=== PATIENT | female | born 1980 | race Caucasian/White ===

== ENCOUNTER 2017-05-26 09:20 | Observation (INO) | payer OTHER ==
--- NOTE | 2017-05-26 09:31 | EDM.PDOC ---
ED HPI GENERAL MEDICAL PROBLEM - General Chief Complaint: Chest Pain Stated Complaint: chest pain Time Seen by Provider: 05/26/17 09:25 Source of Information: Reports: Patient, Family (), Old Records ([facility] EMR. 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 this morning. She has not taken any medications for her symptoms to this point and has not had similar type symptoms in the past. No history of previous cardiac workup. The patient denies any heart flutter, dizziness, orthostasis, orthopnea, diaphoresis, paresthesias, recent decreased exercise tolerance, or any other anginal-type symptoms. No recent history of abdominal pain, heartburn, nausea, diarrhea, melena, gross hematochezia, or any food intolerance, including fatty foods, etc.. The patient also denies any recent fever, cough, wheezing, dyspnea, etc.. Onset: Today, Sudden Onset Date: 05/26/17 Onset Time: 08:00 Duration: Constant Location: Reports: Neck, Chest, Back, Radiates to (As above) Quality: Reports: Pressure Severity: Mild Improves with: Reports: None Worsens with: Reports: None Context: Reports: Other (As above) Associated Symptoms: Reports: Chest Pain. Denies: Confusion, Cough, Diaphoresis , Fever/Chills, Headaches, Loss of Appetite, Malaise, Nausea/Vomiting, Shortness of Breath, Syncope, Weakness Treatments BIG 6 DEALER: Reports: Other (see below) (None) Chest Pain Pain Score (Numeric/FACES): 2 - Related Data Allergies Allergy/AdvReac Type Severity Reaction Status Date / Time Latex, Natural Rubber Allergy Swelling Verified 05/26/17 09:36 Home Meds: Home Meds Dextroamphetamine/Amphetamine [Adderall] 30 mg PO DAILY 05/26/17 [History] Ibuprofen 800 mg PO Q6H PRN 05/26/17 [History] Vits #93/Iron Fum/FA [ Formula Tablet] 1 tab PO DAILY 05/26/17 [History] Pseudoephedrine HCl [Sudafed] 1 tab PO Q4H PRN 05/26/17 [History] diphenhydrAMINE [Benadryl] 50 mg PO Q6H PRN 05/26/17 [History] Past Medical History HEENT History: Reports: Allergic Rhinitis, Otitis Media, Other (See Below). Denies: Cataract, Glaucoma, Hard of Hearing, Impaired Vision, Retinal Detachment Other HEENT History: Patient wears glasses and soft contacts; Recurrent otitis media as a child Cardiovascular History: Reports: None, Other (See Below). Denies: Afib, Aneurysm, Arrhythmia, Blood Clots/VTE/DVT, CAD, Heart Murmur, High Cholesterol, Hypertension, PA, PVD, Syncope Respiratory History: Denies: Asthma, COPD, Intubation, Previous, PE, Pneumothorax, Sleep Apnea Gastrointestinal History: Reports: Chronic Constipation. Denies: Celiac Disease , Cholelithiasis, Chronic Diarrhea, Colon Polyp, Fecal Incontinence, GERD, GI Bleed, Hepatitis, Hiatal Hernia, Irritable Bowel Syndrome, Jaundice, Pancreatitis, PUD Genitourinary History: Reports: None. 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 Denies: Dysfunctional Uterine Bleeding, Endometriosis, Fibroids, Spontaneous , Therapeutic : 3 Para: 4 LMP (Approximate): Other (See Below) Other OB/BYN History: LMP on 05/12/17 which was normal; preeclampsia, gestational diabetes, initial with subsequent twin requiring LTCS at 32 weeks gestation secondary to monoamniotic sac and distress with subsequent follow-up LTCS with last ; Musculoskeletal History: Reports: Arthritis, Back Pain, Chronic, Fracture, Neck Pain, Chronic, Osteoarthritis, RA, Other (See Below). Denies: Amputation, Gout , SLE Other Musculoskeletal History: Wrist fracture as a childside unknown Neurological History: Reports: Headaches, Chronic, Migraines, Neuropathy, Peripheral, Other (See Below). Denies: Brain Injury, Cerebral Aneurysms, Concussion, CVA, Head Trauma, MS, Neuropathy, Diabetic, Parkinson's, Seizure, TIA Other Neuro History: Peripheral neuropathy mostly in the right arm Psychiatric History: Reports: ADD, ADHD. Denies: Abuse, Victim of, Addiction, Anxiety, Depression, Psych Hospitalization(s), PTSD, Suicide Attempt, Suicidal Ideation Endocrine/Metabolic History: Reports: Diabetes, Gestational. Denies: Diabetes, Type I, Diabetes, Type II, Diabetes Mellitus, Type 3c, Hypothyroidism, IDDM Hematologic History: Reports: None, Anemia, Iron Deficiency. Denies: B12 Deficiency, Blood Transfusion(s) Immunologic History: Reports: None. Denies: AIDS, HIV, SLE Oncologic (Cancer) History: Reports: None. Denies: Basal Cell Carcinoma, Cervix , Hodgkin's Lymphoma, Leukemia, Lymphoma, Malignant Melanoma, Non-Hodgkin's Lymphoma, Squamous Cell Carcinoma Dermatologic History: Reports: None. Denies: Eczema, Psoriasis - Infectious Disease History Infectious Disease History: Reports: Chicken Pox. Denies: C-Difficile, Measles , Meningitis, Mononucleosis, MRSA, Mumps, Pertussis (Whooping Cough), Rheumatic Fever, Rubella, Scarlet Fever, Shingles, TB, VRE - Past Surgical History Head Surgeries/Procedures: Reports: None HEENT Surgical History: Reports: Adenoidectomy, Tonsillectomy, Other (See Below) . Denies: Eye Surgery, Laser Surgery, LASIK, Myringotomy w Tube(s), Naso-Sinus Surgery, Oral Surgery Other HEENT Surgeries/Procedures: Tonsillectomy and adenoidectomy at about age 8 ; teeth extraction; Cardiovascular Surgical History: Reports: None. Denies: Varicose, Vascular Surgery Respiratory Surgical History: Reports: None. Denies: Thoracentesis GI Surgical History: Reports: None. Denies: Appendectomy, Cholecystectomy, Colonoscopy, EGD, Hernia, Abdominal, Hernia, Inguinal, Hernia Repair/Other Female Surgical History: Reports: Breast Biopsy, Section, Tubal Ligation, Other (See Below). Denies: D&C, Salpingo-Oophorectomy Other Female Surgeries/Procedures: LTCS 2 as above; bilateral tubal ligation on 03/20/11; needle biopsy of left breast in 2013 for benign disease Endocrine Surgical History: Reports: None. Denies: Thyroid Biopsy Neurological Surgical History: Reports: None. Denies: C-Spine, Discectomy, Laminectomy, Lumbar Spine, Spinal Fusion, Vertebroplasty Musculoskeletal Surgical History: Reports: None. Denies: Arthroscopic Procedure , Carpal Tunnel, Ganglion Cyst, Joint Replacement, ORIF, Shoulder Surgery Oncologic Surgical History: Reports: Biopsy of Breast, Other (See Below) Other Oncologic Surgeries/Procedures: As above for benign disease Dermatological Surgical History: Reports: Skin Biopsy, Other (See Below) Other Dermatological Surgeries/Procedures: Skin biopsy of abdomen at about age 20 for benign disease - Past Imaging History Past Imaging History: Reports: None Social & Family History - Family History Family Medical History: Unobtainable HEENT: Reports: Cataract, Glaucoma, Macular Degeneration, Other (See Below). Denies: Retinal Detachment Other HEENT Family History: Maternal grandfather with history of cataracts, glaucoma, macular degeneration, and deattached retina; mother with strabismus Cardiac: Reports: Blood Clots/VTE/DVT, Bypass, High Cholesterol, Hypertension, PA, Other (See Below). Denies: Afib, Aneurysm, Arrhythmia, CAD, Syncope Other Cardiac Family History: Paternal grandfather CABG 4 in his 60s to 70s with history of several MIs initial PA in his 50s; hypertension in parents, paternal aunts 5, paternal uncles 3, maternal aunts 2; paternal grandmother with history of DVT and secondary fatal PE at age 68; hyperlipidemia in parents Respiratory: Reports: Asthma, PE, Pneumothorax, Other (See Below). Denies: COPD , Sleep Apnea Other Respiratory Family Hisory: Sister with asthma; twins with history of spontaneous pneumothoraces secondary to delivery; fatal PE and paternal grandmother as above GI: Reports: GI bleed, PUD, Other (See Below). Denies: Celiac Disease, Cholelithiasis, Colon Polyps, GERD, Inflammatory Bowel Disease, Irritable Bowel Syndrome Other GI Family History: History of peptic ulcer disease and gastric ulcer in paternal grandmother : Reports: Renal Calculus, Other (See Below). Denies: Dialysis, Renal Disease /Insufficiency, UTI, Recurrent Other Family History: Sister with urolithiasis OBGYN: Reports: Endometriosis, Recurrent Spontaneous , Other (See Below) . Denies: Dysfunctional uterine bleeding, Fibroids Other OBGYN Family History: Maternal aunts 2 with endometriosis and multiple secondary miscarriages Musculoskeletal: Reports: RA, Other (See Below). Denies: Gout, SLE Other Musculoskeletal Family History: Mother and maternal grandmother with rheumatoid arthritis Neurological: Reports: Alzheimers Disease, CVA, Dementia, Migraines, TIA, Other (See Below). Denies: Cerebral Aneurysms, MS, Parkinson's, Seizure Other Neurological Family History: CVA in paternal grandfather in his 50s; mother with TIA in her 40s; maternal grandfather with organic brain syndrome; Mother with migraines Psychiatric: Reports: Anxiety, Depression, Psych Hospitalization(s), Other (See Below). Denies: Abuse, Victim of, ADD, Psychosis, PTSD, Suicide Attempt Other Psychiatric Family History: Father with anxiety depression disorder; paternal grandmother with anxiety depression disorder with hospitalizations required usually after pregnancies Endocrine/Metabolic: Reports: Diabetes, type II, Hypothyroidism, Other (See Below). Denies: Diabetes, Type I, IDDM Other Endocrine/Metabolic Family History: AODM in father; hypothyroidism in paternal aunts 2 Hematologic: Reports: None. Denies: Anemia, B12 Deficiency, SLE, Transfusion Reaction Immunologic: Reports: None. Denies: AIDS, HIV, SLE Dermatologic: Reports: Eczema, Other (See Below). Denies: Psoriasis Other Dermatologic Family History: Sister with eczema Oncologic: Reports: Lung, Lymphoma, Metastatic, Prostate, Other (See Below). Denies: Breast, Colon, Hodgkin's Lymphoma, Leukemia, Non-Hodgkin's Lymphoma, Ovarian, Skin, Uterine Other Oncologic Family History: Paternal grandfather with fatal unknown type of cancer in his 80s with known history of previous prostate cancer, colon, pancreas, etc. - Tobacco Use Smoking Status *Q: Current Every Day Smoker Tobacco Use Within Last Twelve Months: Cigarettes Years of Tobacco use: 17 Packs/Tins Daily: 0.5 (Smoking at age 20 with maximum use of one pack per day) Used Tobacco, but Quit: Yes Smoking Cessation Information Provided To Patient: Yes (At discharge) Second Hand Smoke Exposure: Yes Source of Second Hand Smoke Exposure: smokes Second Hand Smoke Education Provided: Yes - Caffeine Use Caffeine Use: Reports: Energy Drinks (3 Cans per day). Denies: Coffee, Soda, Tea - Alcohol Use Alcohol Use History: Yes Days Per Week of Alcohol Use: 0 (No previous DWIs, problems with alcohol abuse, etc.) Number of Drinks Per Day: 3 (Usually beer or wine once per month) Total Drinks Per Week: 0 Alcohol Use in Last Twelve Months: Yes Alcohol Use Frequency: Socially - Recreational Drug Use Recreational Drug Use: Yes Drug Use in Last 12 Months: No Recreational Drug Type: Reports: Marijuana/Hashish (Experimented with marijuana between 20 and 22). 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 Denies: Fever, Chills, Malaise, Weakness , Fatigue, Night Sweats, Diaphoresis, Decreased Appetite, Weight Gain HEENT: Reports: Glasses. Denies: Dental Pain, Ear Discharge, Ear Pain, Eye Pain , Hearing Loss, Rhinitis, Sinus Problem, Throat Pain, Vertigo, Vision Change Respiratory: Reports: No Symptoms. Denies: Shortness of Breath, Wheezing, Pleuritic Chest Pain, Cough, Sputum, Hemoptysis Cardiovascular: Reports: Chest Pain. Denies: Blood Pressure Problem (Although elevated in the emergency room), Claudication, Dyspnea on Exertion, Edema, Lightheadedness, Orthopnea, Palpitations, Syncope Endocrine: Reports: No Symptoms. Denies: Fatigue GI/Abdominal: Reports: No Symptoms. Denies: Abdominal Pain, Anorexia, Black Stool, Bloody Stool, Constipation, Diarrhea, Decreased Appetite, Difficulty Swallowing, Distension, Flatus, Hematemesis, Hematochezia, Melena, Mucous in Stool, Nausea, Vomiting : Reports: No Symptoms. Denies: Discharge, Dysuria, Flank Pain, Frequency, Hematuria, Incontinence, Irregular Menses, Urgency, Urinary Retention Musculoskeletal: Reports: Neck Pain, Back Pain. Denies: Shoulder Pain, Arm Pain , Hand Pain, Leg Pain, Foot Pain, Joint Pain, Joint Swelling, Muscle Pain, Muscle Stiffness Skin: Reports: No Symptoms. Denies: Pallor, Diaphoresis, Bruising, Pruritis, Rash, Wound Neurological: Reports: No Symptoms. Denies: Confusion, Dizziness, Headache, Numbness, Paresthesia, Seizure, Syncope, Tingling, Weakness Psychiatric: Reports: No Symptoms. Denies: Agitation, Anxiety, Confusion, Depression, Hallucinations, Suicidal Ideation Hematologic/Lymphatic: Reports: No Symptoms Immunologic: Reports: No Symptoms ED EXAM, GENERAL - Physical Exam Exam: See Below Exam Limited By: No Limitations General Appearance: Alert, WD/WN, No Apparent Distress, Anxious (Mild to moderate) Eye Exam: Bilateral Eye: EOMI, Normal Inspection (Patient wearing glasses, no nystagmus), PERRL Ears: Normal External Exam, Normal Canal, Hearing Grossly Normal, Normal TMs Nose: Normal Inspection, Normal Mucosa, No Blood Throat/Mouth: Normal Inspection, Normal Lips, Normal Gums, Normal Oropharynx, Normal Voice, No Airway Compromise, Other (Right lower missing tooth with additional posterior chipped tooth and caries in the right lower second premolar ). No: Normal Teeth, Dysphagia, Perioral Cyanosis Head: Atraumatic, Normocephalic. No: Facial Swelling, Facial Tenderness, Sinus Tenderness Neck: Normal Inspection, Supple, Non-Tender, Full Range of Motion. No: Carotid Bruit, Lymphadenopathy (L), Lymphadenopathy (R), Thyromegaly Respiratory/Chest: No Respiratory Distress, Lungs Clear, Normal Breath Sounds, No Accessory Muscle Use, Chest Non-Tender. No: Pleural Rub, Retractions Cardiovascular: Normal Peripheral Pulses, No Edema, No Gallop, No JVD, No Murmur , No Rub, Tachycardia (Mild, regular rhythm). No: Gallop/S3, Gallop/S4, Extra Beats, Friction Rub Peripheral Pulses: 2+: Radial (R), Femoral (L), Dorsalis Pedis (L), Dorsalis Pedis (R) GI/Abdominal: Normal Bowel Sounds, Soft, Non-Tender, No Organomegaly, No Distention, No Abnormal Bruit, No Mass, Pelvis Stable. No: Guarding (Female) Exam: Deferred Rectal (Female) Exam: Deferred Back Exam: Normal Inspection, Full Range of Motion. No: CVA Tenderness (L), CVA Tenderness (R), Muscle Spasm Extremities: Normal Inspection, Normal Range of Motion, Non-Tender, No Pedal Edema, Normal Capillary Refill. No: Surya's Sign Neurological: Alert, Oriented, CN II-XII Intact, Normal Cognition, Normal Gait, Normal Reflexes (Negative Babinski's), No Motor/Sensory Deficits Psychiatric: Anxious (Mild to moderate), Depressed Mood Skin Exam: Warm, Dry, Intact, Normal Color, No Rash, Tattoo(s) (Multiple). No: Diaphoretic, Ecchymosis, Petechiae, Stud(s), Wound/Incision Lymphatic: No Adenopathy EKG INTERPRETATION EKG Date: 05/26/17 Time: 09:37 Rhythm: NSR Rate (Beats/Min): 93 [place]: Normal (Neutral) P-Wave: Present (Mild diffuse biphasic P waves with extreme poor R-wave progression in the anterior leads) QRS: Normal (QRS interval 0.07 seconds) ST-T: Other (T-wave inversion in leads V1 and V2) QT: Normal MT/PQ Interval: 0.11 seconds representing a short MT interval with no delta waves noted Comparison: NA - No Prior EKG EKG Interpretation Comments: 1. Possible anterior wall cardiac ischemia 2. Short MT interval Course - Vital Signs Last Recorded V/S: Last Vital Signs Temp 36.7 C 05/26/17 10:07 Pulse 86 05/26/17 10:28 Resp 16 05/26/17 10:28 BP 140/84 05/26/17 10:28 Pulse Ox 100 05/26/17 10:28 Vital Signs - 24 hr 05/26/17 05/26/17 05/26/17 09:25 09:30 09:32 Temperature [ 36.7 C 36.7 C Oral] Pulse, Peripheral Pulse, 111 H 105 H Peripheral [ Right] Respiratory 20 18 Rate Blood Pressure Blood Pressure 165/87 H 165/84 H [Left Upper Arm ] O2 Sat by Pulse 100 99 Oximetry O2 Sat by Pulse 100 100 Oximetry [ Nasal Cannula] 05/26/17 05/26/17 05/26/17 09:37 09:52 10:02 Temperature [ Oral] Pulse, 90 Peripheral Pulse, 103 H 100 Peripheral [ Right] Respiratory 18 18 Rate Blood Pressure 169/95 H Blood Pressure 162/83 H 169/95 H [Left Upper Arm ] O2 Sat by Pulse 100 100 Oximetry O2 Sat by Pulse Oximetry [ Nasal Cannula] 05/26/17 05/26/17 10:07 10:28 Temperature [ 36.7 C Oral] Pulse, Peripheral Pulse, 98 86 Peripheral [ Right] Respiratory 16 16 Rate Blood Pressure Blood Pressure 143/95 H 140/84 [Left Upper Arm ] O2 Sat by Pulse 100 100 Oximetry O2 Sat by Pulse Oximetry [ Nasal Cannula] - Orders/Labs/Meds Orders: Active Orders 24 hr Category Date Time Status Cardiac Monitoring [RC] . DIRECTED Care 05/26/17 09:32 Active EKG Documentation Completion [RC] ASDIRECTED Care 05/26/17 09:32 Active Oxygen Therapy, ED [RC] CONTINUOUS Care 05/26/17 09:32 Active Peripheral IV Care [RC] . DIRECTED Care 05/26/17 09:32 Active Pulse Oximetry [RC] CONTINUOUS Care 05/26/17 09:32 Active Up With Assistance [RC] PFP Care 05/26/17 09:32 Active Vital Signs [RC] PFP Care 05/26/17 09:32 Active Nothing per Oral Now Diet [DIET] Diet 05/26/17 Breakfast Active Chest 1V Frontal [CR] Stat Exams 05/26/17 09:32 Ordered Sodium Chloride 0.9% [Saline Flush] Med 05/26/17 09:32 Active 10 ml FLUSH ASDIRECTED PRN Obtain Past Medical Record [OM.PC] Urgent Oth 05/26/17 09:32 Active Peripheral IV Insertion Adult [OM.PC] Stat Oth 05/26/17 09:32 Ordered Resuscitation Status Stat Resus Stat 05/26/17 09:32 Ordered Medication Orders Sodium Chloride (Saline Flush) 10 ml FLUSH ASDIRECTED PRN PRN Reason: Keep Vein Open Last Admin: 05/26/17 10:05 Dose: 10 ml Labs: Laboratory Tests 05/26/17 05/26/17 05/26/17 Range/Units 09:46 09:46 09:46 WBC 7.1 (4.0-10.2) K/uL RBC 4.09 (3.77-5.09) M/uL Hgb 13.6 (11.7-15.5) g/dL Hct 38.9 (34.0-46.0) % MCV 95.1 (84.0-98.0) fL MCH 33.3 (28.2-33.3) pg MCHC 35.0 (31.7-36.0) g/dL RDW 11.9 (11.2-14.1) % Plt Count 195 (150-350) K/uL Neut % (Auto) 59.8 (45.0-80.0) % Lymph % (Auto) 24.3 (10.0-50.0) % [place] % (Auto) 10.1 (2.0-14.0) % Eos % (Auto) 5.4 H (0.0-5.0) % Baso % (Auto) 0.4 (0.0-2.0) % Neut # (Auto) 4.22 (1.40-7.00) K/uL Lymph # (Auto) 1.71 (0.50-3.50) K/uL [place] # (Auto) 0.71 (0.00-1.00) K/uL Eos # (Auto) 0.38 (0.00-0.50) K/uL Baso # (Auto) 0.03 (0.00-0.20) K/uL PT 10.5 (9.8-11.7) SEC INR 1.0 APTT 30.8 H (22.1-29.8) SEC D-Dimer, Quantitative < 100 (0-400) ng/mL Sodium (136-145) mmol/L Potassium (3.5-5.1) mmol/L Chloride (98-107) mmol/L Carbon Dioxide (21.0-32.0) mmol/L BUN (7-18) mg/dL Creatinine (0.51-1.17) mg/dL Est Cr Clr Drug Dosing mL/min Estimated GFR (MDRD) mL/min Glucose (74-106) mg/dL Lactic Acid (0.4-2.0) mmol/L Uric Acid (2.6-7.2) mg/dL Calcium (8.5-10.1) mg/dL Magnesium (1.8-2.4) mg/dL Total Bilirubin (0.2-1.0) mg/dL AST (15-37) U/L ALT (12-78) U/L Alkaline Phosphatase (46-116) IU/L Creatine Kinase (26-308) U/L Creatine Kinase Index (0.0-2.5) % CK-MB (CK-2) (0.00-3.60) ng/mL Troponin I (0.000-0.056) ng/mL NT-Pro-B Natriuret Pep (0-125) pg/mL Total Protein (6.4-8.2) g/dL Albumin (3.4-5.0) g/dL TSH, Ultra Sensitive (0.358-3.740) mIU/mL HCG, Qual (NEGATIVE) 05/26/17 05/26/17 05/26/17 Range/Units 09:46 09:46 09:46 WBC (4.0-10.2) K/uL RBC (3.77-5.09) M/uL Hgb (11.7-15.5) g/dL Hct (34.0-46.0) % MCV (84.0-98.0) fL MCH (28.2-33.3) pg MCHC (31.7-36.0) g/dL RDW (11.2-14.1) % Plt Count (150-350) K/uL Neut % (Auto) (45.0-80.0) % Lymph % (Auto) (10.0-50.0) % [place] % (Auto) (2.0-14.0) % Eos % (Auto) (0.0-5.0) % Baso % (Auto) (0.0-2.0) % Neut # (Auto) (1.40-7.00) K/uL Lymph # (Auto) (0.50-3.50) K/uL [place] # (Auto) (0.00-1.00) K/uL Eos # (Auto) (0.00-0.50) K/uL Baso # (Auto) (0.00-0.20) K/uL PT (9.8-11.7) SEC INR APTT (22.1-29.8) SEC D-Dimer, Quantitative (0-400) ng/mL Sodium 139 (136-145) mmol/L Potassium 4.1 (3.5-5.1) mmol/L Chloride 103 (98-107) mmol/L Carbon Dioxide 26.4 (21.0-32.0) mmol/L BUN 14 (7-18) mg/dL Creatinine 0.67 (0.51-1.17) mg/dL Est Cr Clr Drug Dosing 84.18 mL/min Estimated GFR (MDRD) > 60 mL/min Glucose 111 H (74-106) mg/dL Lactic Acid 0.9 (0.4-2.0) mmol/L Uric Acid 4.1 (2.6-7.2) mg/dL Calcium 9.0 (8.5-10.1) mg/dL Magnesium 2.0 (1.8-2.4) mg/dL Total Bilirubin 0.2 (0.2-1.0) mg/dL AST 18 (15-37) U/L ALT 34 (12-78) U/L Alkaline Phosphatase 76 (46-116) IU/L Creatine Kinase 143 (26-308) U/L Creatine Kinase Index 1.5 (0.0-2.5) % CK-MB (CK-2) 2.10 (0.00-3.60) ng/mL Troponin I 0.003 (0.000-0.056) ng/mL NT-Pro-B Natriuret Pep 20 (0-125) pg/mL Total Protein 7.0 (6.4-8.2) g/dL Albumin 4.0 (3.4-5.0) g/dL TSH, Ultra Sensitive 2.137 (0.358-3.740) mIU/mL HCG, Qual Negative (NEGATIVE) Meds: Medications Generic Name Dose Route Start Last Admin Trade Name Frelizzie PRN Reason Stop Dose Admin Sodium Chloride 10 ml 05/26/17 09:32 05/26/17 10:05 Saline Flush FLUSH 10 ml ASDIRECTED PRN Administration Keep Vein Open Discontinued Medications Generic Name Dose Route Start Last Admin Trade Name Frelizzie PRN Reason Stop Dose Admin Aspirin 324 mg 05/26/17 09:32 05/26/17 09:52 Aspirin CHEW 05/26/17 09:33 324 mg ONETIME ONE Administration Famotidine 40 mg 05/26/17 09:32 05/26/17 10:02 Pepcid IVPUSH 05/26/17 09:33 40 mg ONETIME ONE Administration Metoprolol Tartrate 2.5 mg 05/26/17 09:32 05/26/17 10:02 Lopressor IVPUSH 05/26/17 09:33 2.5 mg ONETIME ONE Administration Ticagrelor 180 mg 05/26/17 09:32 05/26/17 09:53 Brilinta PO 05/26/17 09:33 180 mg ONETIME ONE Administration - Radiology Interpretation Free Text/Narrative:: 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 Departure - Departure Time of Disposition: 10:45 Disposition: Refer to Observation Condition: Good Clinical Impression: Chest pain, Hypertension, Caries, ADHD, Shortened MT interval, Tobacco abuse counseling - Problem List & Annotations (1) Chest pain SNOMED Code(s): 16644066 Code(s): R07.9 - CHEST PAIN, UNSPECIFIED Status: Acute Priority: High Current Visit: Yes Onset Date: 05/26/17 Annotation/Comment:: Chest pain protocol initiated immediately upon patient's arrival to the emergency room. Chest pain resolved at time of admission. Initiate standard rule out PA orders with cardiology consultation depending on her clinical course. Probable Cardiolite stress test on an outpatient basis. Qualifiers: Chest pain type: chest pain due to myocardial ischemia Ischemic chest pain type: stable angina pectoris Qualified Code(s): I20.8 - Other forms of angina pectoris (2) Hypertension SNOMED Code(s): 37719067 Code(s): I10 - ESSENTIAL (PRIMARY) HYPERTENSION Status: Chronic Priority : Medium Current Visit: Yes Annotation/Comment:: Note previous history of preeclampsia and strong family history of hypertension. IV Lopressor initiated in the emergency room. Initiate low-dose Toprol-XL on admission. Note significant caffeine intake with the patient advised to stop her energy drinks AUSTYN. Continue to observe closely by her regular provider Qualifiers: Hypertension type: essential hypertension Qualified Code(s): I10 - Essential (primary) hypertension (3) Shortened MT interval SNOMED Code(s): 93557283 Code(s): R94.31 - ABNORMAL ELECTROCARDIOGRAM [ECG] [EKG] Status: Acute Priority: Medium Current Visit: Yes Onset Date: 05/26/17 Annotation/ Comment:: Observe for now. No delta waves noted. Madhav therapy as above with caution. (4) ADHD SNOMED Code(s): 012029961 Code(s): F90.9 - ATTENTION-DEFICIT HYPERACTIVITY DISORDER, UNSPECIFIED TYPE Status: Chronic Priority: Medium Current Visit: Yes Annotation/Comment: : Stable by patient history no evidence of mild to moderate mixed anxietyl and depression by clinical exam. Continue to observe closely by her regular provider Qualifiers: Attention deficit-hyperactivity disorder type: combined inattentive- hyperactive Qualified Code(s): F90.2 - Attention-deficit hyperactivity disorder, combined type (5) Caries SNOMED Code(s): 60779525 Code(s): K02.9 - DENTAL CARIES, UNSPECIFIED Status: Chronic Priority: Medium Current Visit: Yes Annotation/Comment:: Follow-up with dentist AUSTYN at discharge (6) Tobacco abuse counseling SNOMED Code(s): 999795855, 447840924 Code(s): Z71.6 - TOBACCO ABUSE COUNSELING Status: Chronic Priority: Medium Current Visit: Yes Annotation/Comment:: Tobacco cessation counseling initiated in the emergency room both with the patient and her with tobacco cessation information to be provided at discharge - Problem List Review Problem List Initiated/Reviewed/Updated: Yes - My Orders Last 24 Hours: My Active Orders 05/26/17 09:32 Cardiac Monitoring [RC] . DIRECTED EKG Documentation Completion [RC] ASDIRECTED Oxygen Therapy, ED [RC] CONTINUOUS Peripheral IV Care [RC] . DIRECTED Pulse Oximetry [RC] CONTINUOUS Up With Assistance [RC] PFP Vital Signs [RC] PFP Chest 1V Frontal [CR] Stat Sodium Chloride 0.9% [Saline Flush] 10 ml FLUSH ASDIRECTED PRN Obtain Past Medical Record [OM.PC] Urgent Peripheral IV Insertion Adult [OM.PC] Stat Resuscitation Status Stat 05/26/17 Breakfast Nothing per Oral Now Diet [DIET] - Assessment/Plan Admission H&P: Please use this note as an admission H&P Last 24 Hours: My Active Orders 05/26/17 09:32 Cardiac Monitoring [RC] . DIRECTED EKG Documentation Completion [RC] ASDIRECTED Oxygen Therapy, ED [RC] CONTINUOUS Peripheral IV Care [RC] . DIRECTED Pulse Oximetry [RC] CONTINUOUS Up With Assistance [RC] PFP Vital Signs [RC] PFP Chest 1V Frontal [CR] Stat Sodium Chloride 0.9% [Saline Flush] 10 ml FLUSH ASDIRECTED PRN Obtain Past Medical Record [OM.PC] Urgent Peripheral IV Insertion Adult [OM.PC] Stat Resuscitation Status Stat 05/26/17 Breakfast Nothing per Oral Now Diet [DIET] Assessment:: As above Plan: As above. Extensive precautions were given to the patient and her , who are in agreement with the treatment plan. The patient's condition is stable enough for observation status and general supervision.
[2017-05-26] MEDS ORDERED: Metoprolol Tartrate 5 MG/5 ML SDV IVPUSH ONE (09:32)
[2017-05-26] MEDS ORDERED: Aspirin 81 MG Tab.Chew CHEW ONE (09:32)
[2017-05-26] MEDS ORDERED: Famotidine 20 MG/2 ML SDV IVPUSH ONE (09:32)
[2017-05-26] MEDS ORDERED: Ticagrelor 90 MG Tab PO ONE (09:32)
[2017-05-26] MEDS: Sodium Chloride 0.9% 10 ML Syringe FLUSH PRN (10:05)
[2017-05-26 10:27] LABS: CHLORIDE,CL 103 mmol/L (98-107); SODIUM,NA 139 mmol/L (136-145)
[2017-05-26] MEDS ORDERED: Temazepam 15 MG Cap PO PRN (10:57)
[2017-05-26] MEDS ORDERED: Sodium Chloride 0.9% 10 ML Syringe FLUSH PRN (10:57)
[2017-05-26] MEDS ORDERED: Metoprolol Succinate 25 MG Tab.ER PO SCH (10:57)
[2017-05-26] MEDS ORDERED: Metoprolol Succinate 25 MG Tab.ER PO ONE (11:01)
[2017-05-26] MEDS ORDERED: Acetaminophen 325 MG Tab PO PRN (12:00)
[2017-05-27] MEDS ORDERED: Prenatal Multivitamin with Calcium/Folic Acid/Iron Tab PO SCH (08:00)
[2017-05-27] MEDS ORDERED: Non-Formulary Medication 1 Each (Dextroamphetamine/Amphetamine [Adderall] 30 MG) PO SCH (08:00)
[2017-05-27] MEDS ORDERED: Metoprolol Succinate 25 MG Tab.ER PO SCH (08:00)
[2017-05-27] MEDS: Sodium Chloride 0.9% 10 ML Syringe FLUSH PRN (08:40)
[2017-05-27 08:44] LABS: CHLORIDE,CL 106 mmol/L (98-107); SODIUM,NA 141 mmol/L (136-145)
--- NOTE | 2017-05-27 09:41 | PCM.DCSUM1 ---
Discharge Summary - Hospital Course HPI Initial Comments: See admission H&P/emergency room now Brief History: See admission H&P/emergency room now - Discharge Data Discharge Date: 05/27/17 Discharge Disposition: Home, Self-Care 01 Condition: Good - Discharge Diagnosis/Problem(s) (1) Chest pain SNOMED Code(s): 73764761 ICD Code: R07.9 - CHEST PAIN, UNSPECIFIED Status: Acute Priority: High Current Visit: Yes Onset Date: 05/26/17 Problem Details: Nonspecific chest pain yesterday afternoon with no other anginal type symptoms and complete resolution at time of discharge. Negative workup for acute DC as above. Activity restrictions discussed and work excuse provided. Patient did receive Tylenol yesterday for her chest discomfort yesterday. Chest pain protocol initiated immediately upon patient's arrival to the emergency room. Chest pain resolved at time of admission. Further cardiology consultation depending on her clinical course and results of Cardiolite stress test, which will be conducted by me in this facility on 05/29. Otherwise close follow-up by her regular provider, Mike Arreguin PA-C, at the [facility] in [place], as per discharge instructions. Her lipid panel this morning was okay, however heart healthy diet advisable. Glycosylated hemoglobin normal this morning Qualifiers: Chest pain type: chest pain due to myocardial ischemia Ischemic chest pain type: stable angina pectoris Qualified Code(s): I20.8 - Other forms of angina pectoris (2) Hypertension SNOMED Code(s): 41464294 ICD Code: I10 - ESSENTIAL (PRIMARY) HYPERTENSION Status: Chronic Priority : Medium Current Visit: Yes Problem Details: She will be discharged on Toprol-XL with borderline tachycardia last evening but heart rate in the 70s at this time with the above medical therapy. Note previous history of preeclampsia and strong family history of hypertension. IV Lopressor was given in the emergency room. Low-dose Toprol-XL was also given on admission. Note significant caffeine intake with the patient advised to stop her energy drinks AUSTYN. Continue to observe closely by her regular provider Qualifiers: Hypertension type: essential hypertension Qualified Code(s): I10 - Essential (primary) hypertension (3) Shortened OH interval SNOMED Code(s): 49796834 ICD Code: R94.31 - ABNORMAL ELECTROCARDIOGRAM [ECG] [EKG] Status: Acute Priority: Medium Current Visit: Yes Onset Date: 05/26/17 Problem Details: Observe for now. No delta waves noted. Madhav therapy as above with caution as above. (4) ADHD SNOMED Code(s): 327011822 ICD Code: F90.9 - ATTENTION-DEFICIT HYPERACTIVITY DISORDER, UNSPECIFIED TYPE Status: Chronic Priority: Medium Current Visit: Yes Problem Details: Stable by patient history no evidence of mild to moderate mixed anxiety and depression by clinical exam. Continue to observe closely by her regular provider Qualifiers: Attention deficit-hyperactivity disorder type: combined inattentive- hyperactive Qualified Code(s): F90.2 - Attention-deficit hyperactivity disorder, combined type (5) Caries SNOMED Code(s): 51630713 ICD Code: K02.9 - DENTAL CARIES, UNSPECIFIED Status: Chronic Priority: Medium Current Visit: Yes Problem Details: Follow-up with dentist AUSTYN at discharge (6) Tobacco abuse counseling SNOMED Code(s): 033053774, 327438793 ICD Code: Z71.6 - TOBACCO ABUSE COUNSELING Status: Chronic Priority: Medium Current Visit: Yes Problem Details: Tobacco cessation counseling initiated in the emergency room both with the patient and her with tobacco cessation information to be provided at discharge - Patient Summary/Data Operative Procedure(s) Performed: None Complications: None Consults: None Labs Pending at D/C: None Recommended Follow-up Testing/Procedures: As per discharge instructions Planned Operative Procedure(s) after DC: As per discharge instructions Hospital Course: The patient was admitted to observation status on telemetry with negative standard rule out orders as above. Chest pain protocol was initiated in the emergency room. Otherwise no complications during this hospitalization. Close follow-up as per discharge instructions. - Patient Instructions Diet: Heart Healthy Diet Activity: No Strenuous Activities (50% maximum exercise restriction with fall and injury precautions as discussed) Driving: May Drive Today Showering/Bathing: May Shower Notify Provider of: Increased Pain, Nausea and/or Vomiting Other/Special Instructions: 1. Cardiolite stress test in this facility with me on 05/29. This facility will call you with a specific time in instructions prior to that evaluation. 2. Followup with your regular provider in 10 days as directed for reevaluation and discussion of the above heart evaluation results. 3. Stop all tobacco use AUSTYN as directed/per provided information and consider contacting [employer], etc.. 4. Follow up with your dentist AUSTYN as discussed. 5. Discontinue all energy drink use immediately and avoid caffeine as discussed. 6. Work excuse- See Form. 7. Tylenol 650 mg by mouth every 4 hours and/or OTC ibuprofen 2-3 tabs by mouth every 6 hours with food as directed./needed. - Discharge Plan Prescriptions/Med Rec: Metoprolol Succinate [Toprol XL] 25 mg PO DAILY #30 tab.er Home Medications: Home Meds Dextroamphetamine/Amphetamine [Adderall] 30 mg PO DAILY 05/26/17 [History] Vits #93/Iron Fum/FA [ Formula Tablet] 1 tab PO DAILY 05/26/17 [History] Pseudoephedrine HCl [Sudafed] 1 tab PO Q4H PRN 05/26/17 [History] diphenhydrAMINE [Benadryl] 50 mg PO Q6H PRN 05/26/17 [History] Acetaminophen [Tylenol] 650 mg PO Q4H PRN tablet 05/27/17 [Rx] Metoprolol Succinate [Toprol XL] 25 mg PO DAILY #30 tab.er 05/27/17 [Rx] Patient Handouts: Fat and Cholesterol Restricted Diet, Ticagrelor oral tablet, Heart-Healthy Eating Plan, [id number], Nonspecific Chest Pain, Famotidine injection, Nonspecific Chest Pain, [id number], Hypertension, [id number], Metoprolol injection Forms: ED Department Discharge Referrals: Mike Arreguin PA [Primary Care Provider] - - Discharge Summary/Plan Comment DC Time >30 min.: Yes (Coordination of care) Discharge Summary/Plan Comment: As above. Extensive precautions were given to the patient, who is in agreement with the treatment plan. See Patient Instructions for further treatment and plan. - General Info Date of Service: 05/27/17 Functional Status: Reports: Pain Controlled, Tolerating Diet, Ambulating, Urinating, New Symptoms. Denies: Incentive Spirometry Numeric/FACES Score: 0 - Review of Systems General: Reports: No Symptoms. Denies: Fever, Weakness, Fatigue, Malaise, Chills, Night Sweats, Appetite (Appetite good) HEENT: Reports: No Symptoms. Denies: Ear Pain, Eye Pain, Headaches, Post Nasal Drip, Sinus Congestion, Sore Throat, Rhinitis, Visual Changes Pulmonary: Reports: No Symptoms. Denies: Shortness of Breath, Pleuritic Chest Pain, Cough, Sputum, Wheezing Cardiovascular: Reports: No Symptoms. Denies: Chest Pain, Palpitations, Dyspnea on Exertion, Orthopnea, PND, Edema, Lightheadedness Gastrointestinal: Reports: No Symptoms, Other (No bowel movement during this hospitalization). Denies: Abdominal Pain, Constipation, Decreased Appetite, Diarrhea, Difficulty Swallowing, Flatus, Hematochezia, Melena, Nausea, Vomiting Genitourinary: Reports: No Symptoms. Denies: Dysuria, Frequency, Burning, Pain , Urgency, Incontinence, Hematuria, Retention, Flank Pain Musculoskeletal: Reports: No Symptoms. Denies: Neck Pain, Shoulder Pain, Arm Pain, Hand Pain, Back Pain, Leg Pain Skin: Reports: No Symptoms. Denies: Diaphoresis, Bruising, Pruritis Neurological: Reports: No Symptoms. Denies: Confusion, Dizziness, Headache, Numbness, Paresthesia, Tingling, Weakness Psychiatric: Reports: No Symptoms. Denies: Confusion, Depression, Anxiety, Agitation, Cravings, Hallucinations - Patient Data Vitals - Most Recent: Last Vital Signs Temp 36.7 C 05/27/17 08:00 Pulse 78 05/27/17 08:39 Resp 15 05/27/17 08:00 BP 130/85 05/27/17 08:39 Pulse Ox 100 05/27/17 08:00 Vital Signs (72 hours) 05/26/17 05/26/17 05/26/17 09:25 09:30 09:32 Temperature [ 36.7 C 36.7 C Oral] Temperature [ Temporal] Pulse, Peripheral Pulse, 111 H 105 H Peripheral [ Right] Respiratory 20 18 Rate Blood Pressure Blood Pressure 165/87 H 165/84 H [Left Upper Arm ] Blood Pressure [Right Upper Arm] O2 Sat by Pulse 100 99 Oximetry O2 Sat by Pulse 100 100 Oximetry [ Nasal Cannula] 05/26/17 05/26/17 05/26/17 09:37 09:52 10:02 Temperature [ Oral] Temperature [ Temporal] Pulse, 90 Peripheral Pulse, 103 H 100 Peripheral [ Right] Respiratory 18 18 Rate Blood Pressure 169/95 H Blood Pressure 162/83 H 169/95 H [Left Upper Arm ] Blood Pressure [Right Upper Arm] O2 Sat by Pulse 100 100 Oximetry O2 Sat by Pulse Oximetry [ Nasal Cannula] 05/26/17 05/26/17 05/26/17 10:07 10:28 10:57 Temperature [ 36.7 C Oral] Temperature [ Temporal] Pulse, Peripheral Pulse, 98 86 Peripheral [ Right] Respiratory 16 16 Rate Blood Pressure Blood Pressure 143/95 H 140/84 [Left Upper Arm ] Blood Pressure [Right Upper Arm] O2 Sat by Pulse 100 100 100 Oximetry O2 Sat by Pulse Oximetry [ Nasal Cannula] 05/26/17 05/26/17 05/26/17 11:30 12:14 14:00 Temperature [ 36.9 C 36.8 C Oral] Temperature [ Temporal] Pulse, 108 H Peripheral Pulse, 82 86 Peripheral [ Right] Respiratory 16 16 Rate Blood Pressure 145/88 H Blood Pressure 145/88 H 135/94 H [Left Upper Arm ] Blood Pressure [Right Upper Arm] O2 Sat by Pulse 100 Oximetry O2 Sat by Pulse Oximetry [ Nasal Cannula] 05/26/17 05/26/17 05/26/17 16:00 19:55 20:00 Temperature [ 37.0 C 37.0 C Oral] Temperature [ Temporal] Pulse, Peripheral Pulse, 82 79 Peripheral [ Right] Respiratory 16 16 Rate Blood Pressure Blood Pressure 153/103 H 144/100 H [Left Upper Arm ] Blood Pressure 139/91 H [Right Upper Arm] O2 Sat by Pulse 98 98 Oximetry O2 Sat by Pulse Oximetry [ Nasal Cannula] 05/26/17 05/26/17 05/27/17 20:35 23:50 04:00 Temperature [ 36.7 C 36.2 C Oral] Temperature [ Temporal] Pulse, Peripheral Pulse, 89 76 Peripheral [ Right] Respiratory 17 15 Rate Blood Pressure Blood Pressure 140/90 131/75 107/60 [Left Upper Arm ] Blood Pressure [Right Upper Arm] O2 Sat by Pulse 98 96 Oximetry O2 Sat by Pulse Oximetry [ Nasal Cannula] 05/27/17 05/27/17 05/27/17 08:00 08:39 11:58 Temperature [ 37.2 C Oral] Temperature [ 36.7 C Temporal] Pulse, 78 Peripheral Pulse, 78 91 Peripheral [ Right] Respiratory 15 16 Rate Blood Pressure 130/85 Blood Pressure [Left Upper Arm ] Blood Pressure 130/85 127/69 [Right Upper Arm] O2 Sat by Pulse 100 99 Oximetry O2 Sat by Pulse Oximetry [ Nasal Cannula] Weight - Most Recent: 63.503 kg I&O - Last 24 hours: Intake & Output 05/26/17 05/27/17 05/27/17 22:59 06:59 14:59 Intake Total 320 Output Total 1100 Balance -780 Imaging Impressions - Last 24 hrs: hospital monitor shows average heart rate in the 70s with some elevated heart rate in the 90s yesterday evening with no ectopy or arrhythmia Chest x-ray, portable, on 05/26/17 shows evidence of mild borderline pulmonary obstructive changes with no pulmonary infiltrates, pneumothorax, cardiomegaly, CHF, etc. Lab Results - Last 24 hrs: Laboratory Results - last 24 hr 05/26/17 05/26/17 05/27/17 Range/Units 15:35 21:35 07:45 WBC 8.4 (4.0-10.2) K/uL RBC 4.22 (3.77-5.09) M/uL Hgb 14.1 (11.7-15.5) g/dL Hct 40.4 (34.0-46.0) % MCV 95.7 (84.0-98.0) fL MCH 33.4 H (28.2-33.3) pg MCHC 34.9 (31.7-36.0) g/dL RDW 12.2 (11.2-14.1) % Plt Count 191 (150-350) K/uL Neut % (Auto) 61.2 (45.0-80.0) % Lymph % (Auto) 23.9 (10.0-50.0) % [place] % (Auto) 9.6 (2.0-14.0) % Eos % (Auto) 4.9 (0.0-5.0) % Baso % (Auto) 0.4 (0.0-2.0) % Neut # (Auto) 5.12 (1.40-7.00) K/uL Lymph # (Auto) 2.00 (0.50-3.50) K/uL [place] # (Auto) 0.80 (0.00-1.00) K/uL Eos # (Auto) 0.41 (0.00-0.50) K/uL Baso # (Auto) 0.03 (0.00-0.20) K/uL Sodium (136-145) mmol/L Potassium (3.5-5.1) mmol/L Chloride (98-107) mmol/L Carbon Dioxide (21.0-32.0) mmol/L BUN (7-18) mg/dL Creatinine (0.51-1.17) mg/dL Est Cr Clr Drug Dosing mL/min Estimated GFR (MDRD) mL/min Glucose (74-106) mg/dL Hemoglobin A1c (4.3-5.7) % Calcium (8.5-10.1) mg/dL Total Bilirubin (0.2-1.0) mg/dL AST (15-37) U/L ALT (12-78) U/L Alkaline Phosphatase (46-116) IU/L Creatine Kinase 124 105 (26-308) U/L Creatine Kinase Index 1.5 1.2 (0.0-2.5) % CK-MB (CK-2) 1.80 1.30 (0.00-3.60) ng/mL Troponin I 0.001 0.002 (0.000-0.056) ng/mL Total Protein (6.4-8.2) g/dL Albumin (3.4-5.0) g/dL Triglycerides (30-150) mg/dL Cholesterol (100-200) mg/dL LDL Cholesterol, Calc (0-100) mg/dL HDL Cholesterol (40-60) mg/dL 05/27/17 05/27/17 Range/Units 07:45 07:45 WBC (4.0-10.2) K/uL RBC (3.77-5.09) M/uL Hgb (11.7-15.5) g/dL Hct (34.0-46.0) % MCV (84.0-98.0) fL MCH (28.2-33.3) pg MCHC (31.7-36.0) g/dL RDW (11.2-14.1) % Plt Count (150-350) K/uL Neut % (Auto) (45.0-80.0) % Lymph % (Auto) (10.0-50.0) % [place] % (Auto) (2.0-14.0) % Eos % (Auto) (0.0-5.0) % Baso % (Auto) (0.0-2.0) % Neut # (Auto) (1.40-7.00) K/uL Lymph # (Auto) (0.50-3.50) K/uL [place] # (Auto) (0.00-1.00) K/uL Eos # (Auto) (0.00-0.50) K/uL Baso # (Auto) (0.00-0.20) K/uL Sodium 141 (136-145) mmol/L Potassium 3.9 (3.5-5.1) mmol/L Chloride 106 (98-107) mmol/L Carbon Dioxide 26.2 (21.0-32.0) mmol/L BUN 11 (7-18) mg/dL Creatinine 0.70 (0.51-1.17) mg/dL Est Cr Clr Drug Dosing 80.57 mL/min Estimated GFR (MDRD) > 60 mL/min Glucose 111 H (74-106) mg/dL Hemoglobin A1c 5.5 (4.3-5.7) % Calcium 8.9 (8.5-10.1) mg/dL Total Bilirubin 0.5 (0.2-1.0) mg/dL AST 20 (15-37) U/L ALT 33 (12-78) U/L Alkaline Phosphatase 73 (46-116) IU/L Creatine Kinase 76 (26-308) U/L Creatine Kinase Index 1.3 (0.0-2.5) % CK-MB (CK-2) 1.00 (0.00-3.60) ng/mL Troponin I 0.000 (0.000-0.056) ng/mL Total Protein 6.6 (6.4-8.2) g/dL Albumin 3.6 (3.4-5.0) g/dL Triglycerides 93 (30-150) mg/dL Cholesterol 177 (100-200) mg/dL LDL Cholesterol, Calc 105 H (0-100) mg/dL HDL Cholesterol 53 (40-60) mg/dL Laboratory Tests 05/26/17 05/26/17 05/26/17 Range/Units 09:46 09:46 09:46 WBC 7.1 (4.0-10.2) K/uL RBC 4.09 (3.77-5.09) M/uL Hgb 13.6 (11.7-15.5) g/dL Hct 38.9 (34.0-46.0) % MCV 95.1 (84.0-98.0) fL MCH 33.3 (28.2-33.3) pg MCHC 35.0 (31.7-36.0) g/dL RDW 11.9 (11.2-14.1) % Plt Count 195 (150-350) K/uL Neut % (Auto) 59.8 (45.0-80.0) % Lymph % (Auto) 24.3 (10.0-50.0) % [place] % (Auto) 10.1 (2.0-14.0) % Eos % (Auto) 5.4 H (0.0-5.0) % Baso % (Auto) 0.4 (0.0-2.0) % Neut # (Auto) 4.22 (1.40-7.00) K/uL Lymph # (Auto) 1.71 (0.50-3.50) K/uL [place] # (Auto) 0.71 (0.00-1.00) K/uL Eos # (Auto) 0.38 (0.00-0.50) K/uL Baso # (Auto) 0.03 (0.00-0.20) K/uL PT 10.5 (9.8-11.7) SEC INR 1.0 APTT 30.8 H (22.1-29.8) SEC D-Dimer, Quantitative < 100 (0-400) ng/mL Sodium (136-145) mmol/L Potassium (3.5-5.1) mmol/L Chloride (98-107) mmol/L Carbon Dioxide (21.0-32.0) mmol/L BUN (7-18) mg/dL Creatinine (0.51-1.17) mg/dL Est Cr Clr Drug Dosing mL/min Estimated GFR (MDRD) mL/min Glucose (74-106) mg/dL Hemoglobin A1c (4.3-5.7) % Lactic Acid (0.4-2.0) mmol/L Uric Acid (2.6-7.2) mg/dL Calcium (8.5-10.1) mg/dL Magnesium (1.8-2.4) mg/dL Total Bilirubin (0.2-1.0) mg/dL AST (15-37) U/L ALT (12-78) U/L Alkaline Phosphatase (46-116) IU/L Creatine Kinase (26-308) U/L Creatine Kinase Index (0.0-2.5) % CK-MB (CK-2) (0.00-3.60) ng/mL Troponin I (0.000-0.056) ng/mL NT-Pro-B Natriuret Pep (0-125) pg/mL Total Protein (6.4-8.2) g/dL Albumin (3.4-5.0) g/dL Triglycerides (30-150) mg/dL Cholesterol (100-200) mg/dL LDL Cholesterol, Calc (0-100) mg/dL HDL Cholesterol (40-60) mg/dL TSH, Ultra Sensitive (0.358-3.740) mIU/mL HCG, Qual (NEGATIVE) 05/26/17 05/26/17 05/26/17 Range/Units 09:46 09:46 09:46 WBC (4.0-10.2) K/uL RBC (3.77-5.09) M/uL Hgb (11.7-15.5) g/dL Hct (34.0-46.0) % MCV (84.0-98.0) fL MCH (28.2-33.3) pg MCHC (31.7-36.0) g/dL RDW (11.2-14.1) % Plt Count (150-350) K/uL Neut % (Auto) (45.0-80.0) % Lymph % (Auto) (10.0-50.0) % [place] % (Auto) (2.0-14.0) % Eos % (Auto) (0.0-5.0) % Baso % (Auto) (0.0-2.0) % Neut # (Auto) (1.40-7.00) K/uL Lymph # (Auto) (0.50-3.50) K/uL [place] # (Auto) (0.00-1.00) K/uL Eos # (Auto) (0.00-0.50) K/uL Baso # (Auto) (0.00-0.20) K/uL PT (9.8-11.7) SEC INR APTT (22.1-29.8) SEC D-Dimer, Quantitative (0-400) ng/mL Sodium 139 (136-145) mmol/L Potassium 4.1 (3.5-5.1) mmol/L Chloride 103 (98-107) mmol/L Carbon Dioxide 26.4 (21.0-32.0) mmol/L BUN 14 (7-18) mg/dL Creatinine 0.67 (0.51-1.17) mg/dL Est Cr Clr Drug Dosing 84.18 mL/min Estimated GFR (MDRD) > 60 mL/min Glucose 111 H (74-106) mg/dL Hemoglobin A1c (4.3-5.7) % Lactic Acid 0.9 (0.4-2.0) mmol/L Uric Acid 4.1 (2.6-7.2) mg/dL Calcium 9.0 (8.5-10.1) mg/dL Magnesium 2.0 (1.8-2.4) mg/dL Total Bilirubin 0.2 (0.2-1.0) mg/dL AST 18 (15-37) U/L ALT 34 (12-78) U/L Alkaline Phosphatase 76 (46-116) IU/L Creatine Kinase 143 (26-308) U/L Creatine Kinase Index 1.5 (0.0-2.5) % CK-MB (CK-2) 2.10 (0.00-3.60) ng/mL Troponin I 0.003 (0.000-0.056) ng/mL NT-Pro-B Natriuret Pep 20 (0-125) pg/mL Total Protein 7.0 (6.4-8.2) g/dL Albumin 4.0 (3.4-5.0) g/dL Triglycerides (30-150) mg/dL Cholesterol (100-200) mg/dL LDL Cholesterol, Calc (0-100) mg/dL HDL Cholesterol (40-60) mg/dL TSH, Ultra Sensitive 2.137 (0.358-3.740) mIU/mL HCG, Qual Negative (NEGATIVE) 05/26/17 05/26/17 05/27/17 Range/Units 15:35 21:35 07:45 WBC 8.4 (4.0-10.2) K/uL RBC 4.22 (3.77-5.09) M/uL Hgb 14.1 (11.7-15.5) g/dL Hct 40.4 (34.0-46.0) % MCV 95.7 (84.0-98.0) fL MCH 33.4 H (28.2-33.3) pg MCHC 34.9 (31.7-36.0) g/dL RDW 12.2 (11.2-14.1) % Plt Count 191 (150-350) K/uL Neut % (Auto) 61.2 (45.0-80.0) % Lymph % (Auto) 23.9 (10.0-50.0) % [place] % (Auto) 9.6 (2.0-14.0) % Eos % (Auto) 4.9 (0.0-5.0) % Baso % (Auto) 0.4 (0.0-2.0) % Neut # (Auto) 5.12 (1.40-7.00) K/uL Lymph # (Auto) 2.00 (0.50-3.50) K/uL [place] # (Auto) 0.80 (0.00-1.00) K/uL Eos # (Auto) 0.41 (0.00-0.50) K/uL Baso # (Auto) 0.03 (0.00-0.20) K/uL PT (9.8-11.7) SEC INR APTT (22.1-29.8) SEC D-Dimer, Quantitative (0-400) ng/mL Sodium (136-145) mmol/L Potassium (3.5-5.1) mmol/L Chloride (98-107) mmol/L Carbon Dioxide (21.0-32.0) mmol/L BUN (7-18) mg/dL Creatinine (0.51-1.17) mg/dL Est Cr Clr Drug Dosing mL/min Estimated GFR (MDRD) mL/min Glucose (74-106) mg/dL Hemoglobin A1c (4.3-5.7) % Lactic Acid (0.4-2.0) mmol/L Uric Acid (2.6-7.2) mg/dL Calcium (8.5-10.1) mg/dL Magnesium (1.8-2.4) mg/dL Total Bilirubin (0.2-1.0) mg/dL AST (15-37) U/L ALT (12-78) U/L Alkaline Phosphatase (46-116) IU/L Creatine Kinase 124 105 (26-308) U/L Creatine Kinase Index 1.5 1.2 (0.0-2.5) % CK-MB (CK-2) 1.80 1.30 (0.00-3.60) ng/mL Troponin I 0.001 0.002 (0.000-0.056) ng/mL NT-Pro-B Natriuret Pep (0-125) pg/mL Total Protein (6.4-8.2) g/dL Albumin (3.4-5.0) g/dL Triglycerides (30-150) mg/dL Cholesterol (100-200) mg/dL LDL Cholesterol, Calc (0-100) mg/dL HDL Cholesterol (40-60) mg/dL TSH, Ultra Sensitive (0.358-3.740) mIU/mL HCG, Qual (NEGATIVE) 05/27/17 05/27/17 Range/Units 07:45 07:45 WBC (4.0-10.2) K/uL RBC (3.77-5.09) M/uL Hgb (11.7-15.5) g/dL Hct (34.0-46.0) % MCV (84.0-98.0) fL MCH (28.2-33.3) pg MCHC (31.7-36.0) g/dL RDW (11.2-14.1) % Plt Count (150-350) K/uL Neut % (Auto) (45.0-80.0) % Lymph % (Auto) (10.0-50.0) % [place] % (Auto) (2.0-14.0) % Eos % (Auto) (0.0-5.0) % Baso % (Auto) (0.0-2.0) % Neut # (Auto) (1.40-7.00) K/uL Lymph # (Auto) (0.50-3.50) K/uL [place] # (Auto) (0.00-1.00) K/uL Eos # (Auto) (0.00-0.50) K/uL Baso # (Auto) (0.00-0.20) K/uL PT (9.8-11.7) SEC INR APTT (22.1-29.8) SEC D-Dimer, Quantitative (0-400) ng/mL Sodium 141 (136-145) mmol/L Potassium 3.9 (3.5-5.1) mmol/L Chloride 106 (98-107) mmol/L Carbon Dioxide 26.2 (21.0-32.0) mmol/L BUN 11 (7-18) mg/dL Creatinine 0.70 (0.51-1.17) mg/dL Est Cr Clr Drug Dosing 80.57 mL/min Estimated GFR (MDRD) > 60 mL/min Glucose 111 H (74-106) mg/dL Hemoglobin A1c 5.5 (4.3-5.7) % Lactic Acid (0.4-2.0) mmol/L Uric Acid (2.6-7.2) mg/dL Calcium 8.9 (8.5-10.1) mg/dL Magnesium (1.8-2.4) mg/dL Total Bilirubin 0.5 (0.2-1.0) mg/dL AST 20 (15-37) U/L ALT 33 (12-78) U/L Alkaline Phosphatase 73 (46-116) IU/L Creatine Kinase 76 (26-308) U/L Creatine Kinase Index 1.3 (0.0-2.5) % CK-MB (CK-2) 1.00 (0.00-3.60) ng/mL Troponin I 0.000 (0.000-0.056) ng/mL NT-Pro-B Natriuret Pep (0-125) pg/mL Total Protein 6.6 (6.4-8.2) g/dL Albumin 3.6 (3.4-5.0) g/dL Triglycerides 93 (30-150) mg/dL Cholesterol 177 (100-200) mg/dL LDL Cholesterol, Calc 105 H (0-100) mg/dL HDL Cholesterol 53 (40-60) mg/dL TSH, Ultra Sensitive (0.358-3.740) mIU/mL HCG, Qual (NEGATIVE) KATHERIN Results - Last 24 hrs: None Med Orders - Current: Current Medications Acetaminophen (Tylenol) 650 mg PO Q4H PRN PRN Reason: Pain Last Admin: 05/26/17 12:14 Dose: 650 mg Metoprolol Succinate (Toprol Xl) 25 mg PO DAILY [facility] Last Admin: 05/27/17 08:39 Dose: 25 mg Non-Formulary Medication (Dextroamphetamine/Amphetamine [Adderall]) 30 mg PO DAILY [facility] Prenat Multivit/News Camera Person/Iron/Folic Ac ( Plus Iron) 1 each PO DAILY [facility] Last Admin: 05/27/17 08:39 Dose: 1 each Sodium Chloride (Saline Flush) 10 ml FLUSH ASDIRECTED PRN PRN Reason: Keep Vein Open Last Admin: 05/27/17 08:40 Dose: 10 ml Sodium Chloride (Saline Flush) 10 ml FLUSH Q12HR PRN PRN Reason: Keep Vein Open Temazepam (Restoril) 15 mg PO BEDTIME PRN PRN Reason: Insomnia Discontinued Medications Aspirin (Aspirin) 324 mg CHEW ONETIME ONE Stop: 05/26/17 09:33 Last Admin: 05/26/17 09:52 Dose: 324 mg Famotidine (Pepcid) 40 mg IVPUSH ONETIME ONE Stop: 05/26/17 09:33 Last Admin: 05/26/17 10:02 Dose: 40 mg Metoprolol Succinate (Toprol Xl) 25 mg PO QPM [facility] Last Admin: 05/26/17 12:22 Dose: Not Given Metoprolol Succinate (Toprol Xl) 25 mg PO ONETIME ONE Stop: 05/26/17 11:02 Last Admin: 05/26/17 12:14 Dose: 25 mg Metoprolol Tartrate (Lopressor) 2.5 mg IVPUSH ONETIME ONE Stop: 05/26/17 09:33 Last Admin: 05/26/17 10:02 Dose: 2.5 mg Ticagrelor (Brilinta) 180 mg PO ONETIME ONE Stop: 05/26/17 09:33 Last Admin: 05/26/17 09:53 Dose: 180 mg - Exam Quality Assessment: Reports: Supplemental Oxygen, DVT Prophylaxis. Denies: Central Line/PICC, Urine Catheter, Skin Breakdown, Restraints General: Reports: Alert, Oriented, Cooperative, No Acute Distress HEENT: Reports: Pupils Equal, Pupils Reactive, EOMI, Mucous Membr. Moist/[place]. Denies: Scleral Icterus Neck: Reports: Supple, Trachea Midline, No JVD, No Thyromegaly, +2 Carotid Pulse wo Bruit. Denies: Lymphadenopathy Lungs: Reports: Clear to Auscultation, Normal Respiratory Effort. Denies: Rub Cardiovascular: Reports: Regular Rate, Regular Rhythm, No Murmurs. Denies: Gallops, Rubs GI/Abdominal Exam: Normal Bowel Sounds, Soft, Non-Tender, No Organomegaly, No Distention, No Abnormal Bruit, No Mass, Pelvis Stable. No: Guarding (Female) Exam: Deferred Rectal (Female) Exam: Deferred Back Exam: Reports: Normal Inspection, Full Range of Motion. Denies: CVA Tenderness (L), CVA Tenderness (R), Muscle Spasm Extremities: Normal Inspection, Normal Range of Motion, Non-Tender, No Pedal Edema, Normal Capillary Refill. No: Surya's Sign Skin: Reports: Warm, Dry, Intact. Denies: Ecchymosis Neurological: Reports: No New Focal Deficit Psy/Mental Status: Reports: Alert, Normal Affect, Normal Mood. Denies: Labile Mood, Anxious, Depressed, Agitated, Suicidal Ideation, Homicidal Ideation, Hallucinations, Withdrawal Symptoms EKG INTERPRETATION EKG Date: 05/27/17 Time: 07:18 Rhythm: NSR Rate (Beats/Min): 69 Kelley: Normal (Neutral) P-Wave: Present QRS: Normal (QRS interval of 0.08 seconds with T-wave inversion in lead V1) ST-T: Normal QT: Normal OH/PQ Interval: 0.10 seconds representing a short OH interval with no delta waves noted but extreme poor R-wave progression in the anterior leads Comparison: No Change (Last EKG on 05/26/17) EKG Interpretation Comments: 1. No acute ischemic changes 2. Short OH interval *Q Meaningful Use (DIS) - VTE *Q VTE Criteria *Q: - Stroke *Q Stroke Criteria *Q: - AMI *Q AMI Criteria *Q:
--- NOTE | 2017-05-29 11:46 | PCM.CST ---
- PARLIAMENT[facility] LIBRARIAN Pre-Procedure Exam Name of Procedure: Reports: Cardiolyte Stress Test Protocol: Reports: Modified Mike Referring/Regular Provider: Mike Arreguin Performing Physician: Esteban Braun Provisional Diagnosis: Reports: Chest Pain HPI: The patient is being evaluated for possible heart disease after recent hospitalization in this facility by me on 05/26 through 05/27/17 with negative workup for acute AR at that time. Patient has had only mild nonspecific 1/10 retrosternal discomfort and pressure since hospital discharge. The patient denies any other chest pain, heart flutter, dizziness, orthostasis, orthopnea, diaphoresis, paresthesias, recent decreased exercise tolerance, or any other anginal-type symptoms. No recent history of abdominal pain, heartburn, nausea, diarrhea, melena, gross hematochezia, or any food intolerance, including fatty foods, etc.. The patient also denies any recent fever, cough, wheezing, dyspnea , etc.. Cardiac Risk Factors: Reports: Family History of Heart Disease (Paternal grandfather with initial AR in his 50s and subsequent several MIs with four- vessel CABG between his 60s and 70s), Hypertension, Tobacco History (Patient smoked between one half and one pack per day since age 19). Denies: Alcohol History, Diabetes Mellitus, Hyperlipidemia, Known Heart Disease, Male Sex Blood Pressure Systolic: 122 Blood Pressure Diastolic: 60 Pulse Rate (adult): 80 Respiratory Rate: 20 O2 Sat on Room Air at Rest: 100 Stated Height: 1.47 m Stated Weight: 63.503 kg - Physical Exam Neck: Reports: Normal Inspection, Supple, Non-Tender, Full Range of Motion. Denies: Lymphadenopathy (L), Lymphadenopathy (R), Thyromegaly Respiratory: No Respiratory Distress, Lungs Clear, Normal Breath Sounds, No Accessory Muscle Use, Chest Non-Tender. No: Pleural Rub, Retractions Cardiovascular: Reports: Normal Peripheral Pulses, Regular Rate, Rhythm, No Edema, No Gallop, No JVD, No Murmur, No Rub. Denies: Gallop/S3, Gallop/S4, Friction Rub GI/Abdominal Exam: Reports: Normal Bowel Sounds, Soft, Non-Tender, No Organomegaly, No Distention, No Abnormal Bruit, No Mass, Other (Obese). Denies : Guarding Extremities: Reports: Normal Inspection, Normal Range of Motion, Non-Tender, No Pedal Edema, Normal Capillary Refill. Denies: Surya's Sign Neuro Exam (Abbreviated): Reports: Alert, Oriented, CN II-XII Intact, Normal Cognition, Normal Gait, No Motor/Sensory Deficits The risks and benefits of the procedure were explained to th: Yes - EKG (prior to procedure) Rate (beats/min): 81 AR/PQ Interval: 0.12 seconds representing a short AR interval with no delta waves noted with mild diffuse biphasic and new pulmonary hypertension by EKG with previous poor R-wave progression in the anterior leads QRS Interval: 0.08 seconds with T-wave inversion in lead V1 and new T wave inversion in lead aVL Rhythm: Normal sinus Viking: Neutral cardiac axis Arrhythmia: None EKG Comparison: Change From Previous EKG (As above since 05/27/17) Interpretation Comments: 1. No acute ischemic changes 2. Short AR interval 3. Probable left atrial enlargement 4. Pulmonary hypertension by EKG - [facility]LI[facility]RARIAN Results Reason for Termination of Procedure: Reports: Patient Fatigue, Reaching Targeted Heart Rate. Denies: Arrhythmia, ST Changes Duration of Exercise (min): 15 Duration of Exercise (sec): 53 Mar Scale (x/20): 18 Maximum Heart Rate: 163 70% Max Predicted: 130 85% Max Predicted: 157 100% Max Predicted: 185 Maximum Blood Pressure Systolic: 180 Diastolic: 80 Blood Pressure at Discharge Systolic: 142 Diastolic: 70 Lowest O2 Sat During Exercise: 98 ST Changes: Reports: None Arrhythmia: Reports: None (Although somewhat noisy baseline at end of exercise) Interpretation: Negative exercise portion of Cardiolite stress test for cardiac ischemia Return of EKG to Baseline: Yes Interventions Needed: Reports: None - Final Diagnosis (1) Chest pain SNOMED Code(s): 30903518 ICD Code: R07.9 - CHEST PAIN, UNSPECIFIED Status: Acute Priority: High Onset Date: 05/26/17 Qualifiers: Chest pain type: chest pain due to myocardial ischemia Ischemic chest pain type: stable angina pectoris Qualified Code(s): I20.8 - Other forms of angina pectoris Annotation/Comment: Negative exercise portion of the Cardiolite stress test for cardiac ischemia. Patient is planning to return to work tomorrow with continuation of previous 50% maximum exercise restrictions until released by her regular provider. Note continued nonspecific chest pain-type symptoms with possible GI etiology. Consider further workup, including possible EGD, etc.. She would benefit from an H. pylori stool evaluation. Further cardiology consultation and/or workup depending on her clinical course and Cardiolite scan results. Her lipid panel during recent hospitalization was okay, however heart healthy diet advisable. Glycosylated hemoglobin was also normal during recent hospitalization. (2) Hypertension SNOMED Code(s): 80616417 ICD Code: I10 - ESSENTIAL (PRIMARY) HYPERTENSION Status: Chronic Priority : Medium Qualifiers: Hypertension type: essential hypertension Qualified Code(s): I10 - Essential (primary) hypertension Annotation/Comment: Mild hypertensive response to exercise, although no change in medical therapy needed at this time. Continue recently initiated Toprol-XL with borderline tachycardia prior to recent hospitalization. Patient has stopped all energy drink use and is also decreasing her caffeine intake. Note previous history of preeclampsia and strong family history of hypertension. Continue to observe closely by her regular provider (3) Shortened AR interval SNOMED Code(s): 77201257 ICD Code: R94.31 - ABNORMAL ELECTROCARDIOGRAM [ECG] [EKG] Status: Acute Priority: Medium Onset Date: 05/26/17 Annotation/Comment: Observe for now. No delta waves noted. Madhav therapy as above with caution as above. (4) ADHD SNOMED Code(s): 150652817 ICD Code: F90.9 - ATTENTION-DEFICIT HYPERACTIVITY DISORDER, UNSPECIFIED TYPE Status: Chronic Priority: Medium Qualifiers: Attention deficit-hyperactivity disorder type: combined inattentive- hyperactive Qualified Code(s): F90.2 - Attention-deficit hyperactivity disorder, combined type Annotation/Comment: Stable by patient history. Note recent evidence of mild to moderate mixed anxiety and depression by clinical exam during initial phases of recent hospitalization. Continue to observe closely by her regular provider (5) Caries SNOMED Code(s): 88766435 ICD Code: K02.9 - DENTAL CARIES, UNSPECIFIED Status: Chronic Priority: Medium Annotation/Comment: Follow-up with dentist AUSTYN at discharge (6) Tobacco abuse counseling SNOMED Code(s): 295253075, 744165930 ICD Code: Z71.6 - TOBACCO ABUSE COUNSELING Status: Chronic Priority: Medium Annotation/Comment: Tobacco cessation counseling initiated in the emergency room both with the patient and her with tobacco cessation information provided at recent hospital discharge. She was congratulated about not using any tobacco products since hospital discharge. - Other Patient Instructions: Maintain a 50% maximum exercise restriction as directed until your cardiac status has been clarified and you have been released by your regular provider. No medication changes at this time. Follow-up with your regular provider in one week for reevaluation and discussion of Cardiolite scan , etc. results. Extensive precautions were given to the patient, who is in agreement with the treatment plan.
== END 2017-05-27 13:20 | disposition home or self-care (01) ==
LOC: LL.ED 09:20 → LL.MS 10:35
PROVIDERS: ADMIT Family Medicine; ATTEND Family Medicine
DX: I20.8 Other forms of angina pectoris (principal); I10 Essential (primary) hypertension; R94.31 Abnormal electrocardiogram [ECG] [EKG]; F90.2 Attention-deficit hyperactivity disorder, combined type; K02.9 Dental caries, unspecified; K59.09 Other constipation; Z79.899 Other long term (current) drug therapy; Z91.040 Latex allergy status; F17.210 Nicotine dependence, cigarettes, uncomplicated
CPT/HCPCS: 36415; 71045; 80053; 80061; 82550; 82553; 83036; 83605; 83735; 83880; 84443; 84484; 84550; 84703; 85025; 85379; 85610; 85730; 93005; 96374; 96375; 99285; A9270-GY; G0378; J3490; J7050; S0028